=== PATIENT | female | born 1965 | race Caucasian/White ===

== ENCOUNTER 2016-08-01 19:03 | Inpatient (IN) | payer OTHER ==
--- NOTE | ~2016-08-01 | XA166 ---
[facility] A Service of [facility] RADIOLOGY TEXT RESULTS PATIENT: MARIA DEL ROSARIO LI LOCATION: C5B 558-01 : [birth year] UNIT #: [id number] AGE: [address]: Natalie Sherman MD SEX: F ORDER DR: [id number] [facility] [address] [place], [place] [address] [id number] MR#: [id number] Acc #: [id number] NAME: MARIA DEL ROSARIO LI : 1965 SEX: F STUDY DATE/TIME: 08/05/2016 8:21 UNIT: C5B ROOM: [facility] STUDY DESCRIPTION: XA PICC Line Placement WO Port Attending Physician: Nataile Sherman M.D. Ordering Physician: Natalie Sherman M.D. Primary Care Physician: Jerel Bey Aprn MEDICAL IMAGING REPORT This report is preliminary unless electronic signature is present EXAM PICC line placement INDICATIONS Need for IV access for IV antibiotics. Patient has a history of respiratory failure and shortness of air for 4 days. PRE-PROCEDURE The procedure was explained to the patient and/or patient market survey representative including risks, benefits, potential complications and potential for alternative forms of treatment. Informed consent was obtained, and prior to initiating the procedure a formal timeout procedure was performed. PROCEDURE Using full standard sterile barrier technique, including caps, gowns, gloves, masks, as well as sterile skin preparation and standard sterile draping, the right arm was prepped and draped in the usual fashion, and real-time sterile ultrasound guidance was used to localize an arm vein and to confirm vessel patency. A hard copy ultrasound image was recorded. After local anesthesia with 1% Xylocaine, the vein was punctured using real-time sterile ultrasound guidance, and an 0.018 guidewire was advanced into the superior vena cava, using fluoroscopic guidance. A 4-Stateless single lumen PICC was then measured and deployed with the tip positioned in the superior vena cava. The position of the line was documented with a radiographic image. The line was secured in place with an adhesive dressing and an antibiotic patch was applied. Total fluoro time was 0.1 minutes. Ak was 3 mGy IMPRESSION Successful placement of a right sided PICC line which terminates in the [facility]. [facility] A Service of [facility] RADIOLOGY TEXT RESULTS PATIENT: MARIA DEL ROSARIO LI LOCATION: C5B 558-01 : [birth year] UNIT #: [id number] AGE: [address]: Natalie Sherman MD SEX: F ORDER DR: superior vena cava. This catheter is ready for immediate use. Dictated by... Chantel Jacobsen M.D. THIS IS AN ELECTRONICALLY VERIFIED REPORT Chantel Jacobsen M.D. at 08/08/2016 5:08 PM SHIRLENE/juan TD: 08/08/2016 10:56 JOB #: [id number] MEDICAL IMAGING REPORT Page 1 of 1 COPY
--- NOTE | ~2016-08-01 | CT57 ---
[facility] A Service of [facility] RADIOLOGY TEXT RESULTS PATIENT: MARIA DEL ROSARIO LI LOCATION: [facility] 558-01 : [birth year] UNIT #: [id number] AGE: [address]: Natalie Sherman MD SEX: F ORDER DR: [id number] [facility] [address] [place], [place] [address] [id number] I MR#: [id number] #: [id number] NAME: MARIA DEL ROSARIO LI : 1965 SEX: F STUDY DATE/TIME: 08/03/2016 16:49 UNIT: [facility] ROOM: [facility] STUDY DESCRIPTION: CT Chest Wo Cont Attending Physician: Natalie Sherman M.D. Ordering Physician: Bob Blanca M.D. Primary Care Physician: Jerel Bey Aprn MEDICAL IMAGING REPORT This report is preliminary unless electronic signature is present EXAM High-resolution CT chest without contrast. HISTORY Shortness of air for 4 days. Respiratory failure. This CT exam was performed with one or more of the following radiation dose reduction techniques: automatic exposure control, adjustment of mA and/or kV according to patient size, and iterative reconstruction. FINDINGS High-resolution CT chest without contrast demonstrates moderately extensive multifocal ground-glass infiltrates throughout both lungs, greater in the upper lobes, which could be secondary to infectious or inflammatory alveolitis. No bronchiectasis. No pleural effusions. Mild superior right paratracheal adenopathy measuring 1.3 cm and subcarinal adenopathy measuring 2.0 cm, could be reactive or inflammatory. No pericardial thickening or effusion. Small calcified mediastinal nodes. Normal caliber thoracic aorta. Left adrenal adenoma measures 3.8 cm. IMPRESSION 1. Moderately extensive multifocal bilateral ground-glass infiltrates throughout both lungs are greater in the upper lobes and are similar to extensive bilateral infiltrates noted on chest x-ray 08/01/2016. The appearance is nonspecific and considerations include infectious or inflammatory alveolitis. 2. No pulmonary nodules or mass. No bronchiectasis or peribronchovascular thickening. No pleural effusions or pleural thickening. 3. Mild mediastinal adenopathy could be reactive or inflammatory. 4. Left adrenal adenoma measures 3.8 cm[address] [facility]. [facility] A Service of [facility] RADIOLOGY TEXT RESULTS PATIENT: MARIA DEL ROSARIO LI LOCATION: C5B 558-01 : [birth year] UNIT #: [id number] AGE: [address]: Natalie Sherman MD SEX: F ORDER DR: Dictated by... Efrem Reagan M.D. THIS IS AN ELECTRONICALLY VERIFIED REPORT Efrem Reagan M.D. at 08/03/2016 10:59 PM PIPER/colby TD: 08/03/2016 21:59 JOB #: [id number] MEDICAL IMAGING REPORT Page 1 of 1 COPY
--- NOTE | ~2016-08-01 | BMI ---
[facility] Nutrition Therapy DATE: 08/02/16 Patient: MARIA DEL ROSARIO LI Physician: JOYCE Address: [address] Room/Bed: [address] [place] [address], Zip: [place] [address] Admit Date: 08/01/16 Date of : [birth year] Height: 5 6 Weight: 366 166.2 HIGH BMI NOTE: DX: 50 yo female admitted for respiratory failure ANTHROPOMETRICS: Ht: 5'6" Wt: 166.4 kg (366#) BMI: 59.2 DIET: Healthy heart INTERVENTION: 1. Healthy heart RECOMMENDATIONS: 1. Continue healthy heart diet to promote gradual weight loss towards healthy BMI (19.0-25.0) or +/-10%IBW. RD will f/u per protocol. Respectfully, Arlene Blum, Director Learning And Development Johan Elliott MS, RD, LD Food and Nutritional Services [facility] cc: client file
--- NOTE | ~2016-08-01 | DS ---
Unit #: [id number] #: [id number] Patient: MARIA DEL ROSARIO LI [id number] [address] [place], [place] [address] [id number] I MR#: [id number] NAME: MARIA DEL ROSARIO LI ROOM: 55 Age: 50 Sex: F Admission Date: 08/01/2016 : 1965 Discharge Date: 08/06/2016 Attending Physician: Natalie Sherman M.D. Primary Care Physician: Jerel Bey Aprn DISCHARGE SUMMARY ADDENDUM Patient's ambulating oxygen saturation dropped to approximately 81%. I will send her home with home oxygen at 2-3 L per nasal cannula with activity and again she will followup with Dr. Blanca as noted. DISCHARGE DIAGNOSIS Currently acute on chronic hypoxic respiratory failure. Dictated by... Srinath Pepper/breanna TD: 08/08/2016 08:07 JOB #: [id number] DISCHARGE SUMMARY Page 1 of 1 X Natalie Sherman MD X DISCHARGE SUMMARY
--- NOTE | ~2016-08-01 | DS ---
Unit #: [id number] #: [id number] Patient: MARIA DEL ROSARIO PAULINO [id number] [address] [place], [place] [address] [id number] I MR#: [id number] NAME: MARIA DEL ROSARIO PAULINO ROOM: [facility] Age: 50 Sex: F Admission Date: 08/01/2016 : 1965 Discharge Date: 08/06/2016 Attending Physician: Natalie Sherman M.D. Primary Care Physician: Jerel Bey, Miguelina DISCHARGE SUMMARY PRINCIPAL DIAGNOSES 1. Acute hypoxic respiratory failure secondary to number two. 2. Atypical pneumonia. 3. Severe mucous plugging status post bronchoscopy. 4. Acute exacerbation of chronic obstructive pulmonary disease. 5. Hypertension. 6. Hyperlipidemia. 7. Hypokalemia. 8. Gastroesophageal reflux disease. 9. Tobaccoism. 10. Probable obstructive sleep apnea. 11. Morbid obesity. 12. Depression. 13. Mild iron deficiency anemia. 14. Diabetes mellitus type 2, newly diagnosed and diet controlled. CHILD ADVOCATE Dr. Blanca, Pulmonology. PROCEDURES 1. Bronchoscopy, on August 05, 2016, with no evidence of endobronchial lesion. Copious secretions of mucous plugging noted. 2. Two-dimensional echocardiogram, on August 02, 2016, with ejection fraction of 55%. No valvular abnormalities. 3. Chest x-ray, on August 01, 2016, with extensive bilateral diffuse interstitial infiltrates. 4. CT of the chest without contrast on August 03, 2016, with extensive multifocal bilateral ground-glass infiltrates. No evidence of nodules or mass. No bronchiectasis. Mild mediastinal lymphadenopathy. Left adrenal adenoma measuring 3.8 cm. CLINICAL HISTORY AND HOSPITAL COURSE Ms. Paulino is a nice, 50-year-old female, who presents to the emergency department with increasing shortness of breath. Please refer to H and P for further details. In the emergency department, the patient was found to be hypoxic with an oxygen saturation of 90% on four liters of oxygen. Chest x-ray revealed diffuse bilateral infiltrates. The patient was subsequently admitted. The patient was placed on broad-spectrum antibiotic therapy and Dr. Blanca was consulted. She was also placed on IV steroids and nebulizer treatments. Initially, patient's oxygenation improved but then worsened for one day. There were concerns about atypical pneumonia versus acute interstitial pneumonitis and she underwent high-resolution CT of the chest Unit #: [id number] #: [id number] Patient: MARIA DEL ROSARIO PAULINO with findings as noted above. Given these findings, she subsequently underwent bronchoscopy and had a large amount of secretions which were suctioned. Status post bronchoscopy, the patient's hypoxia has completely resolved. She is not having any wheezing. She has not had any fever. We are going to complete her course of antibiotics as an outpatient with a tapering of oral steroids. I am still awaiting an ambulating oxygen saturation to determine whether she needs oxygen with activity. The patient's other chronic conditions all remain stable. She will be discharged home later today. DISCHARGE CONDITION Stable. DISCHARGE STATUS Discharged to home. DISCHARGE MEDICATIONS 1. Ventolin inhaler one puff every four hours p.r.n. for shortness of breath. 2. Combivent nebulizer treatments 3 mL inhaled four times daily p.r.n. for shortness of breath. 3. Prednisone 10 mg tablets four tablets for three days, then three tablets for three days, then two tablets for three days and then one tablet for three days and discontinue. 4. Neurontin 400 mg t.i.d. 5. Wellbutrin 150 mg b.i.d. 6. Claritin 10 mg daily. 7. Lasix 80 mg in the morning and 40 mg at bedtime. 8. Ferrous gluconate 324 mg b.i.d. 9. Protonix 40 mg b.i.d. 10. Potassium chloride 10 mEq b.i.d. 11. Flexeril 10 mg p.o. t.i.d. 12. Levaquin 750 mg p.o. daily for another three days. DISCHARGE INSTRUCTIONS 1. The patient is to follow a Heart Healthy, constant carb diet. She, again, has received dietary instruction regarding her newly diagnosed diabetes. She can follow up with her primary care physician. At this time, I do not feel she needs to obtain Accu-Cheks. 2. She can increase her activity as tolerated. FOLLOWUP The patient will follow up with Dr. Dallsa Blanca in approximately two to four weeks. She will follow up with her primary care provider in four weeks as well. Dictated by... Natalie Sherman M.D. Zach TD: 08/08/2016 06:46 JOB #: [id number] Unit #: [id number] #: [id number] Patient: MARIA DEL ROSARIO PAULINO DISCHARGE SUMMARY Page 1 of 1 X Natalie Sherman MD X DISCHARGE SUMMARY
--- NOTE | ~2016-08-01 | CR72 ---
[facility] A Service of [facility] RADIOLOGY TEXT RESULTS PATIENT: MARIA DEL ROSARIO LI LOCATION: [place] [address] : [birth year] UNIT #: [id number] AGE: [address]: Natalie Sherman MD SEX: F ORDER DR: [id number] [facility] [address] [place], [place] [address] [id number] I MR#: [id number] Acc #: [id number] NAME: MARIA DEL ROSARIO LI : 1965 SEX: F STUDY DATE/TIME: 08/01/2016 18:39 UNIT: [facility] ROOM: [facility] STUDY DESCRIPTION: CR Chest Single View Portable Attending Physician: Stephanie Jones M.D. Ordering Physician: Lloyd Lewis M.D. Primary Care Physician: Jerel Bey Aprn MEDICAL IMAGING REPORT This report is preliminary unless electronic signature is present EXAM Portable chest, 08/01/2016 HISTORY Shortness of air, cough, congestion and fever for 3 days. FINDINGS There are extensive diffuse bilateral predominately interstitial infiltrates. No prior chest x-rays are available for comparison. Considerations include infectious or inflammatory etiologies or less likely pulmonary interstitial edema. No cardiac enlargement or vascular congestion. Mild elevation of the right hemidiaphragm. IMPRESSION Extensive bilateral diffuse interstitial infiltrates could be secondary to interstitial edema or pneumonitis. No prior chest x-rays are available for comparison. Dictated by... Efrem Reagan M.D. THIS IS AN ELECTRONICALLY VERIFIED REPORT Efrem Reagan M.D. at 08/02/2016 2:35 PM DFClare/colby TD: 08/01/2016 23:11 JOB #: [id number] MEDICAL IMAGING REPORT Page 1 of 1 COPY
--- NOTE | ~2016-08-01 | EKG ---
PATIENT: MARIA DEL ROSARIO LI UNIT #: [id number] Ventricular Rate: 98 BPM Atrial Rate: 117 BPM QRS Duration: 82 ms Q-T Interval: 342 ms QTC Calculation(Bezet): 436 ms Calculated R [place]: 50 degrees Calculated T [place]: 31 degrees Diagnosis Line: Sinus tachycardia Premature atrial complexes Diagnosis Line: Abnormal ECG Diagnosis Line: No previous ECGs available Diagnosis Line: Confirmed by MAURA PERES MD ([id number]) on 08/02/2016 Diagnosis Line: 11:21:48 PM INTERPRETING MD: LARISA NICOLE
--- NOTE | ~2016-08-01 | CO ---
Unit #: [id number] #: [id number] Patient: MARIA DEL ROSARIO PAULINO [id number] [address] [place], [place] [address] [id number] I MR#: [id number] NAME: MARIA DEL ROSARIO PAULINO ROOM: 558 Age: 50 Sex: F Admission Date: 08/01/2016 : 1965 Attending Physician: Natalie Sherman M.D. Primary Care Physician: Jerel Bey Aprn CONSULTATION REPORT Ms. Paulino is a 50-year-old white female who developed cough, congestion, short of breath, fever, wheezing about three weeks ago. She was seen in her primary care clinic and was treated with a Z-Luis Alberto and steroids. She improved somewhat, was seen again about four days prior to her current admission and still had shortness of breath and congestion. Was started on Levaquin and steroids again. She took about three days of Levaquin but had not improved and presented to the emergency room. She had a deep cough with shortness of breath and wheezing. She had fatigue and malaise, orthopnea and mild pedal edema as well. She denied any chest pain. In the emergency room, she was noted to be hypoxic. Apparently her O2 sat was 90% on 4 L per minute. She was noted to have crackles and wheezes throughout. Chest x-ray showed diffuse bilateral infiltrate. EKG showed PACs but no ischemic changes. She has been admitted. She has been started on Levaquin, Solu-Medrol, Duo-Nebs, Rocephin. She denies any unusual exposure history or sick contacts. She has not been around any animals or frieda conditions. She has no known history of congestive heart failure. She does have a history of smoking one pack of cigarettes a day. She has no history of collagen vascular disease or use of medication for urinary tract infection. Has not been on Macrodantin, methotrexate, etc. PAST MEDICAL HISTORY Significant for: 1. Gastroesophageal reflux. 2. Hyperlipidemia. 3. COPD. 4. Depression. 5. She has had left arthroscopic knee surgery. 6. Open cholecystectomy. 7. Ovarian cyst removal. 8. Hand surgery. ALLERGIES Sulfa. HOME MEDICATIONS 1. Neurontin. 2. Lasix. 3. Prilosec. 4. Claritin. 5. Flexeril. 6. Wellbutrin. 7. Potassium. 8. Combivent. 9. Protonix. Unit #: [id number] #: [id number] Patient: MARIA DEL ROSARIO PAULINO 10. Ventolin. 11. Symbicort. FAMILY HISTORY Positive for COPD and coronary artery disease. SOCIAL HISTORY Lives with boyfriend. Smokes a pack a day. No alcohol or illicit drugs. Does have a dog and cat at home. REVIEW OF SYSTEMS CONSTITUTIONAL: She did have fever and chills. HEENT: Some rhinorrhea, nasal congestion. PULMONARY: As noted. CARDIAC: No chest pain or palpitations. GI: No nausea or vomiting. : No hematuria or dysuria. ENDOCRINE: No polyuria or polydipsia. HEMATOLOGIC: No easy bruising or bleeding. SKIN: No rash. NEURO: No unilateral weakness or numbness. No swollen joints. PHYSICAL EXAMINATION GENERAL: Morbidly obese white female in no distress. VITAL SIGNS: Blood pressure is 121/76, pulse 81, respiratory rate 16, temperature afebrile. HEENT: Normocephalic, atraumatic. Pupils equal, round, reactive. Sclerae are nonicteric. Nasal passages patent. Posterior pharynx crowded. Mallampati 3-4. Mucous membranes moist. NECK: Supple. Trachea midline. No cervical or supraclavicular lymphadenopathy. LUNGS: Some crackles in the bases and about [facility] up posteriorly. CARDIAC: Regular rate and rhythm. Could not appreciate murmur, rub or gallop. ABDOMEN: Nontender. Bowel sounds present. No hepatosplenomegaly. EXTREMITIES: Without clubbing, cyanosis or edema. NEURO: Awake, alert, oriented x3. Cranial nerves intact. Muscle strength symmetric bilaterally. Affect calm. Skin is warm and dry. DIAGNOSTIC STUDIES LABORATORY: Laboratory studies reviewed. Creatinine is 1.1. BNP is 103. Cardiac enzymes negative. White count 7500, hematocrit 36.5, platelet count normal. Influenzae A and B are negative. HIV is negative. IMAGING: Chest x-ray reviewed as noted. IMPRESSION 1. Acute hypoxemic respiratory failure. 2. Bilateral pulmonary infiltrate consistent with pneumonia, likely viral/atypical. 3. Bronchospasm. 4. Tobacco abuse. Unit #: [id number] #: [id number] Patient: MARI ADEL ROSARIO PAULINO 5. Morbid obesity. 6. Possible obstructive sleep apnea. 7. Gastroesophageal reflux disease. 8. Hyperlipidemia. 9. History of psychiatric disorder. PLAN Will check total serum eosinophils, respiratory viral panel. Agree with broad spectrum antibiotics to cover atypicals and Strep. Will also check urine antigen for Legionella. Check procalcitonin levels. Further recommendations pending this. Dictated by... Bob Blanca M.D. MICHAELA/kendra TD: 08/03/2016 05:47 JOB #: [id number] CONSULTATION REPORT Page 1 of 1 X Bob Blanca MD X CONSULTATION REPORT
--- NOTE | ~2016-08-01 | HP ---
Unit #: [id number] #: [id number] Patient: MARIA DEL ROSARIO LI [id number] [address] [place], [place] [address] [id number] MR#: [id number] NAME: MARIA DEL ROSARIO LI ROOM: Age: 50 Sex: F Admission Date: 08/01/2016 : 1965 Attending Physician: Lloyd Lewis M.D. Primary Care Physician: Jerel Bey Aprn HISTORY AND PHYSICAL CHIEF COMPLAINT Atypical pneumonia failing outpatient treatment with acute hypoxic respiratory failure and hypokalemia. HISTORY OF PRESENT ILLNESS This pleasant 50-year-old female with COPD and GERD is admitted for respiratory failure. The patient states that she was well until three weeks prior to admission when she developed fevers, sweats, and chills with a deep cough productive of purulent sputum, headache, ear pain, shortness of breath, and hoarseness. She was seen by her primary care physician and treated with a Z-Luis Alberto, along with a course of steroids and cough syrup without improvement. She saw her primary care physician again, who prescribed Levaquin on July 28, 2016, along with continued steroids. Patient states that her cough is less purulent but still has a deep cough, along with shortness of breath and bronchospasm. She notes fatigue, myalgias, orthopnea, and mild pedal edema as well. No chest pain with the above. She presented to this emergency department with stable vital signs except that she is hypoxic. Her O2 saturation currently is 90% on four liters of oxygen. She has diffuse crackles throughout both lungs. Chest x-ray shows diffuse bilateral infiltrates. Initial EKG shows PACs but no ischemia. In the ER, she was treated with Solu-Medrol, given two grams of Rocephin, 500 mg of IV Zithromax, 40 mEq of potassium, and Robitussin-AC. PAST MEDICAL HISTORY 1. Gastroesophageal reflux disease. 2. Hyperlipidemia. 3. Chronic obstructive pulmonary disease. 4. Depression. 5. Left arthroscopic knee surgery. 6. Open cholecystectomy. 7. Surgery for ovarian cyst. 8. Hand surgery. ALLERGIES SULFA. HOME MEDICATIONS 1. Neurontin 400 mg t.i.d. 2. Lasix 80 mg in the morning and 40 mg in the evening. 3. Prilosec 40 mg daily. 4. Claritin 10 mg daily. Unit #: [id number] #: [id number] Patient: MARIA DEL ROSARIO LI 5. Flexeril 10 mg t.i.d. 6. Wellbutrin 150 mg b.i.d. 7. Potassium 10 mEq b.i.d. 8. Combivent. 9. Protonix 40 mg b.i.d. 10. Ventolin. FAMILY HISTORY Chronic obstructive pulmonary disease and CAD. SOCIAL HISTORY The patient lives with her boyfriend. She smokes one pack per day of tobacco and does not drink alcohol or use illicit drugs. She lives with her dog and cat but has no other pets. REVIEW OF SYSTEMS Notable for shortness of breath, wheezing, fevers, sweats, chills, cough, myalgias, orthopnea, mild pedal edema, GERD, hyperlipidemia, COPD, depression, above-mentioned surgeries, and tobacco abuse. All other systems were reviewed and are negative. PHYSICAL EXAMINATION GENERAL: A pleasant, morbidly obese, 50-year-old female currently in no acute distress. VITAL SIGNS: Temperature 98.8, pulse 100, respirations 15, blood pressure 115/71, and O2 saturation currently is 91% on 4 liters of oxygen. HEENT: Eyes PERRLA. Extraocular muscles are intact. Pharynx with dry mucosal membranes. NECK: Supple without adenopathy or thyromegaly. CHEST: Crackles throughout both lungs. CARDIAC: Normal S1 and S2 without definite murmur. There may be mild JVD on exam. ABDOMEN: Bowel sounds are present. No hepatosplenomegaly, tenderness, or masses. EXTREMITIES: No edema. Pedal pulses are present. No ulcers on the feet. NEUROLOGIC: Patient is awake, alert, and oriented. Cranial nerves are intact. Equal strength throughout. DIAGNOSTIC STUDIES ADMISSION LABORATORY: Hematocrit is 36.5 with normal white count and platelet count. Cardiac markers negative. SMA-12 with glucose 138, potassium 2.8, calcium 8, and albumin is 2.9. IMAGING: Chest x-ray shows extensive diffuse bilateral infiltrates. CARDIOLOGY: EKG was read as atrial fibrillation but actually is a normal sinus rhythm with PACs. ASSESSMENT 1. Possible atypical pneumonia not responding to usual antibiotics for community-acquired pneumonia. The patient presents with acute hypoxic respiratory failure and chronic obstructive pulmonary disease exacerbation. Will however, check BNP and echocardiogram to exclude congestive heart failure. 2. Tobacco abuse and underlying chronic obstructive pulmonary disease. 3. Hypertension. 4. Gastroesophageal reflux disease. 5. Hyperlipidemia. Unit #: [id number] #: [id number] Patient: MARIA DEL ROSARIO LI 6. Hypokalemia secondary to Lasix. PLANS 1. Rocephin and Levaquin pending cultures. 2. Obtain BNP and echo. 3. Replace potassium and check magnesium. 4. Influenza swab and check HIV. 5. DVT and gastritis prophylaxis. 6. Steroids and bronchodilators. 7. Probable Pulmonary consultation depending on above. 1. Dictated by Srinath Skinner/sharmaine TD: 08/01/2016 21:40 JOB #: [id number] HISTORY AND PHYSICAL Page 1 of 1 X Stephanie Jones MD X HISTORY AND PHYSICAL
--- NOTE | ~2016-08-01 | OR ---
Unit #: [id number] #: [id number] Patient: MARIA DEL ROSARIO LI [id number] [address] [place], [place] [address] [id number] MR#: [id number] NAME: MARIA DEL ROSARIO LI ROOM: 558 Date of Procedure: 08/05/2016 Admission Date: 08/01/2016 Surgeon: Bob Blanca M.D. : 1965 Attending Physician: Natalie Sherman M.D. Primary Care Physician: Jerel Bey Aprn OPERATIVE REPORT PROCEDURE PERFORMED Fiberoptic bronchoscopy. INDICATIONS FOR PROCEDURE A 50-year-old white female with diffuse bilateral ground-glass infiltrates, rule out atypical pneumonia versus AIP versus eosinophilic pneumonia, etc. POSTOPERATIVE DIAGNOSIS No endobronchial lesions. Copious secretions with mucus plugging throughout, suctioned free. Bronchoalveolar lavage done, right upper lobe. DESCRIPTION OF PROCEDURE Procedure was done with MAC on supplemental oxygen. O2 saturations remained greater than 90%. The fiberoptic bronchoscope was introduced through the oral cavity via the bite block. The vocal cords were identified. They moved normally to phonation and breathing. There were copious dried secretions in the upper airway, some of which were suctioned and removed. The vocal cords were anesthetized with 1% lidocaine. The bronchoscope was passed through the vocal cords into the trachea. There were secretions in the trachea, which were suctioned free. The bronchoscope was passed into the trachea. The main silvio was sharp. The bronchoscope was passed down the right mainstem, into the bronchus intermedius, right middle lobe, right lower lobe and upper lobe. There was mucus plugging throughout, but no endobronchial lesions were identified. The mucus plugs were lavaged clear. The bronchoscope was withdrawn to the main silvio and advanced down the left mainstem. There were copious secretions throughout the lower lobe and upper lobe, which were suctioned free. There were no endobronchial lesions identified. The bronchoscope was then withdrawn to the main silvio and inserted into the anterior segment of the right upper lobe, and a total of 90 mL of normal saline was instilled with removal of approximately 45 mL. It was sent for lab for evaluation. The patient tolerated the procedure well. Dictated by... Bob Blanca M.D. MICHAELA/mirtha TD: 08/05/2016 22:15 JOB #: [id number] Unit #: [id number] #: [id number] Patient: MARIA DEL ROSARIO LI OPERATIVE REPORT Page 1 of 1 X Bob Blanca MD PROCEDURE OPERATIVE NOTE
--- NOTE | ~2016-08-01 | EKG ---
PATIENT: MARIA DEL ROSARIO LI UNIT #: [id number] Ventricular Rate: 95 BPM Atrial Rate: 95 BPM P-R Interval: 138 ms QRS Duration: 80 ms Q-T Interval: 348 ms QTC Calculation(Bezet): 437 ms P [place]: 62 degrees Calculated R [place]: 63 degrees Calculated T [place]: 16 degrees Diagnosis Line: Normal sinus rhythm Diagnosis Line: Nonspecific ST and T wave abnormality Diagnosis Line: When compared with ECG of 01-AUG-2016 21:50, Diagnosis Line: (unconfirmed) Diagnosis Line: No significant change was found Diagnosis Line: Confirmed by MAURA PERES MD ([id number]) on 08/02/2016 Diagnosis Line: 11:26:31 PM INTERPRETING MD: LARISA NICOLE
[2016-08-01 18:47] LABS: POC - CKMB 3.2 ng/mL (0.0-7.9); POC - TROPONIN <0.05 ng/mL (<=0.05)
[2016-08-01 18:48] LABS: BASOPHIL% 0.3 % (0-2.5); EOSINOPHIL% 0.4 % (0.0-7.0); HEMATOCRIT 36.5 % (35.0-45.0); HEMOGLOBIN 11.5 gm/dL (12.0-16.0); LYMPHOCYTE# 1.1 X10e3 (1.0-3.5); LYMPHOCYTE% 12.7 % (17.0-45.0); MEAN CELL VOLUME 80.6 FL (83-96); MEAN CORPUSCULAR HEMOGLOBIN 25.3 PG (28-34); MEAN CORPUSCULAR HGB CONC 31.4 g/dL (30-36); MEAN PLATELET VOLUME 9.1 FL (6.5-11.5); MONOCYTE# 0.4 X10e3 (0-1.0); NEUTROPHIL# 7.4 X10e3 (1.5-7.1); NEUTROPHIL% 82.6 % (40-75); PLATELET COUNT 186 X10e3 (140-420); RED BLOOD COUNT 4.53 X10e (3.90-5.30); RED CELL DISTRIBUTION WIDTH 18.7 % (11.0-15.5); WHITE BLOOD COUNT 8.9 X10e3 (4.0-10.5)
[2016-08-01 18:49] LABS: DIFF IND NO
[2016-08-01 19:32] LABS: ALBUMIN SERUM 2.9 g/dL (3.5-5.0); BILIRUBIN, DIRECT 0.1 mg/dL (0.0-0.2); BILIRUBIN,INDIRECT 0.2 mg/dL (0.0-0.9); BILIRUBIN,TOTAL 0.3 mg/dL (0.2-2.0); BUN/CREATININE RATIO 16.36; CREATININE SERUM 1.1 mg/dL (0.6-1.4); GLOM FILT RATE Estimated 59.3 mL/min (>60); PROTEIN TOTAL SERUM 6.9 g/dL (6.0-8.3)
[2016-08-01 19:35] LABS: POTASSIUM 2.8 mmol/L (3.5-5.1)
[2016-08-01] MEDS ORDERED: LASIX PO ×2 (20:04)
[2016-08-01] MEDS ORDERED: NEURONTIN PO (20:04)
[2016-08-01] MEDS ORDERED: FLEXERIL10 MG PO (20:05)
[2016-08-01] MEDS ORDERED: CLARITIN10 M2 PO (20:05)
[2016-08-01] MEDS ORDERED: PRILOSEC PO (20:05)
[2016-08-01] MEDS ORDERED: WELLBUTRIN PO (20:06)
[2016-08-01] MEDS ORDERED: KCL PO (20:06)
[2016-08-01] MEDS ORDERED: ALBUTEROL17 GM INH (20:07)
[2016-08-01] MEDS ORDERED: COMBIVENT U/D3 M2 INH (20:07)
[2016-08-01] MEDS ORDERED: PROTONIX PO (20:07)
[2016-08-02 03:00] LABS: HEMATOCRIT 36.5 % (35.0-45.0); HEMOGLOBIN 11.7 gm/dL (12.0-16.0); MEAN CELL VOLUME 80.4 FL (83-96); MEAN CORPUSCULAR HEMOGLOBIN 25.7 PG (28-34); MEAN PLATELET VOLUME 8.6 FL (6.5-11.5); RED BLOOD COUNT 4.53 X10e (3.90-5.30); RED CELL DISTRIBUTION WIDTH 18.5 % (11.0-15.5); WHITE BLOOD COUNT 7.5 X10e3 (4.0-10.5)
[2016-08-02 03:27] LABS: BUN/CREATININE RATIO 12.72; CALCIUM SERUM 8.4 mg/dL (8.4-10.2); CREATININE SERUM 1.1 mg/dL (0.6-1.4); GLOM FILT RATE Estimated 59.3 mL/min (>60); POTASSIUM 3.8 mmol/L (3.5-5.1)
[2016-08-02 03:46] LABS: MB 5.6 ng/ml
[2016-08-02 11:52] LABS: IRON SERUM 11 ug/dL (28-170); TOTAL IRON BINDING CAPACITY 381 ug/dL (269-535); TRANSFERRIN 272 mg/dL (192-382); TRANSFERRIN SATURATION 3 % (20-50)
[2016-08-02 12:17] LABS: INFLUENZA A NEG (NEG); INFLUENZA B NEG (NEG)
[2016-08-03 07:43] LABS: HEMATOCRIT 35.6 % (35.0-45.0); HEMOGLOBIN 11.3 gm/dL (12.0-16.0); MEAN CELL VOLUME 81.3 FL (83-96); MEAN CORPUSCULAR HEMOGLOBIN 25.9 PG (28-34); MEAN CORPUSCULAR HGB CONC 31.8 g/dL (30-36); RED BLOOD COUNT 4.38 X10e (3.90-5.30); RED CELL DISTRIBUTION WIDTH 18.5 % (11.0-15.5); WHITE BLOOD COUNT 9.1 X10e3 (4.0-10.5)
[2016-08-03 08:18] LABS: BUN/CREATININE RATIO 21.11; CALCIUM SERUM 8.9 mg/dL (8.4-10.2); CREATININE SERUM 0.9 mg/dL (0.6-1.4); GLOM FILT RATE Estimated 75.7 mL/min (>60); POTASSIUM 4.7 mmol/L (3.5-5.1)
[2016-08-05 16:21] LABS: BODY FLUID SOURCE BRONCHIAL LAVAGE
[2016-08-05 16:23] LABS: BF TOTAL NUCLEATED CELL COUNT 872 CMM (0-100); BODY FLUID APPEARANCE HAZY; BODY FLUID RBC <10000 CMM
[2016-08-06] MEDS ORDERED: FERROUS GLUCON324 MG PO (16:03)
[2016-08-06] MEDS ORDERED: LEVAQUIN750 MG PO (16:19)
[2016-08-06] MEDS ORDERED: PREDNISONE10 M1 PO (16:23)
[2016-08-07 03:51] LABS: SPE A1GLOB (PNL) 0.4 g/dL (0.2-0.3); SPE A2GLOB (PNL) 1.1 g/dL (0.5-0.9); SPE ALB (PNL) 3.2 g/dL (3.8-4.8); SPE BETA 1 GLOBULIN 0.5 g/dL (0.4-0.6); SPE BETA 2 GLOBULIN 0.4 g/dL (0.2-0.5); SPE GAMMA (PNL) 1.2 g/dL (0.8-1.7); SPETP (PNL) 6.9 g/dL (6.1-8.1)
== END 2016-08-06 23:33 | disposition home or self-care (01) | DRG 163 ==
LOC: CED 19:03 → CEDOF 21:38 → C5B 22:22
PROVIDERS: Emergency Medicine; Internal Medicine
PROC: B246YZZ Ultrasonography of Right and Left Heart using Other Contrast (ICD-10-PCS; principal; 2016-08-01)
PROC: 0B958ZZ Drainage of Right Middle Lobe Bronchus, Via Natural or Artificial Opening Endoscopic (ICD-10-PCS; 2016-08-01)
PROC: 0B918ZZ Drainage of Trachea, Via Natural or Artificial Opening Endoscopic (ICD-10-PCS; 2016-08-05)
PROC: 0B948ZX Drainage of Right Upper Lobe Bronchus, Via Natural or Artificial Opening Endoscopic, Diagnostic (ICD-10-PCS; 2016-08-05)
PROC: 0B968ZZ Drainage of Right Lower Lobe Bronchus, Via Natural or Artificial Opening Endoscopic (ICD-10-PCS; 2016-08-05 13:00)
PROC: 0B948ZZ Drainage of Right Upper Lobe Bronchus, Via Natural or Artificial Opening Endoscopic (ICD-10-PCS; 2016-08-05 13:00)
DX: J96.21 Acute and chronic respiratory failure with hypoxia (principal); J18.9 Pneumonia, unspecified organism; T17.490A Other foreign object in trachea causing asphyxiation, initial encounter; T17.590A Other foreign object in bronchus causing asphyxiation, initial encounter; J44.0 Chronic obstructive pulmonary disease with (acute) lower respiratory infection; F17.200 Nicotine dependence, unspecified, uncomplicated; D50.9 Iron deficiency anemia, unspecified; J44.1 Chronic obstructive pulmonary disease with (acute) exacerbation; Z68.43 Body mass index [BMI] 50.0-59.9, adult; K21.9 Gastro-esophageal reflux disease without esophagitis; I10 Essential (primary) hypertension; E78.5 Hyperlipidemia, unspecified; E87.6 Hypokalemia; G47.33 Obstructive sleep apnea (adult) (pediatric); E66.01 Morbid (severe) obesity due to excess calories; E11.40 Type 2 diabetes mellitus with diabetic neuropathy, unspecified; Z90.49 Acquired absence of other specified parts of digestive tract; Z88.2 Allergy status to sulfonamides
CPT/HCPCS: 36415; 71010; 71250; 76937; 77001; 80048; 80076; 82308; 82550; 82553; 82947; 83036; 83540; 83550; 83735; 83880; 84165; 84484; 85025; 85027; 87040; 87070; 87102; 87106; 87116; 87205; 87206; 87252; 87254; 87278; 87449; 87633; 87804; 87806; 88108; 88305; 88312; 89051; 89190; 93005; 93306; 94640; 94644; 94760; 96374; 97110; 97116; 97161; 97162; 97165; 97530; 99285; C1751; G8978-GP; G8979-GP; J0171; J0456; J0696; J1650; J1815; J1956; J2920; J2930

== ENCOUNTER → 2016-09-19 | Outpatient (CLI) | payer OTHER ==
[~2016-09-19] MED LIST: ALBUTEROL17 GM INH; CLARITIN10 M2 PO; COMBIVENT U/D3 M2 INH; FERROUS GLUCON324 MG PO; FLEXERIL10 MG PO; KCL PO; LASIX PO; LEVAQUIN750 MG PO; NEURONTIN PO; PREDNISONE10 M1 PO; PRILOSEC PO; PROTONIX PO; WELLBUTRIN PO
--- NOTE | ~2016-09-19 | CT57 ---
[facility] A Service of [facility] RADIOLOGY TEXT RESULTS PATIENT: MARIA DEL ROSARIO LI LOCATION: [facility] : 69 UNIT #: [id number] AGE: [address]: Dimple Delgado SEX: F ORDER DR: [id number] [facility] [address] [place], [place] [address] [id number] MR#: [id number] Acc #: [id number] NAME: MARIA DEL ROSARIO LI : 1965 SEX: F STUDY DATE/TIME: 09/19/2016 13:51 UNIT: [facility] ROOM: STUDY DESCRIPTION: CT Chest Wo Cont Attending Physician: Dimple Delgado A.P.R.N. Referring Physician: Dimple Delgado A.P.R.N. Ordering Physician: Dimple Delgado A.P.R.N. Primary Care Physician: Jerel Bey Aprn MEDICAL IMAGING REPORT This report is preliminary unless electronic signature is present EXAM CT chest without contrast 09/19/2016 HISTORY 50-year-old female history of pneumonia 3 months ago. Followup. Patient states shortness of breath and dyspnea today. Emphysema. COMPARISON High-resolution CT chest 08/03/2016. TECHNIQUE 5 mm noncontrast axial images through the chest. Sagittal and coronal reformatted images were obtained. This CT exam was performed with one or more of the following radiation dose reduction techniques: automatic exposure control, adjustment of mA and/or kV according to patient size, and iterative reconstruction. FINDINGS Peripheral interstitial fibrotic features are demonstrated within the lungs, greatest anteriorly in the upper lobes. Faint ground-glass densities are scattered throughout both lungs with a somewhat geographic pattern, slightly greatest in the bilateral lower lobes. The ground-glass densities, however, appear improved compared to the high-resolution chest CT from 08/03/2016 which may represent component of reversible pneumonitis. No dense consolidative changes are identified, however there is chronic-appearing band-like scarring within the lingula. Noncalcified nodule within the anterior-inferior right upper lobe measuring 8 mm is noted, not definitely seen on the previous examination. Right upper paratracheal node measuring 9 mm is smaller, previously measuring 1.3 cm short axis. Subcarinal lymph node currently measures 1.3 STS. [facility] A Service of [facility] RADIOLOGY TEXT RESULTS PATIENT: MARIA DEL ROSARIO LI LOCATION: [facility] : 69 UNIT #: [id number] AGE: [address]: Dimple Delgado SEX: F ORDER DR: cm short axis, compared to 2 cm on 08/03/2016, suggesting these nodes are likely benign and reactive. No pericardial effusion or pleural effusion is seen. Benign calcified granulomas changes are present within the mediastinum. Left adrenal adenoma (Hounsfield units -11.9) is unchanged and measures 3.7 cm. Presumed cholecystectomy. No acute or suspicious osseous abnormalities are identified. IMPRESSION 1. The diffuse ground-glass opacities seen within both lungs on 08/13/2016 have markedly improved, although some residual ground-glass densities remain in bilateral lower lobes. Findings likely reflect a component of reversible pneumonitis. No dense consolidations are seen. 2. An 8 mm noncalcified nodule is in the anterior-inferior right upper lobe which appears new since the previous examination. Benign infectious-inflammatory etiology favored. Continued additional CT chest follow up in 6 months recommended. 3. Features of mild interstitial fibrosis, particularly in the anterior upper lobes. No honeycombing fibrosis. 4. Previously described mediastinal lymph nodes have diminished in size suggesting they may represent benign reactive changes. 5. Left adrenal adenoma. Dictated by... Sharifa Sanabria M.D. THIS IS AN ELECTRONICALLY VERIFIED REPORT Sharifa Sanabria M.D. at 09/22/2016 8:31 AM NICOLE/brandyn TD: 09/19/2016 20:08 JOB #: [id number] MEDICAL IMAGING REPORT Page 1 of 1 COPY
== END | disposition home or self-care (01) ==
LOC: CCAT 13:29
DX: J18.9 Pneumonia, unspecified organism (principal); R91.1 Solitary pulmonary nodule; D35.02 Benign neoplasm of left adrenal gland
CPT/HCPCS: 71250